=== PATIENT | male | born 1945 | race Caucasian/White ===

== ENCOUNTER 2017-05-22 18:43 | Emergency (ER) | payer MEDICARE, OTHER ==
[~2017-05-22] VITALS: Ht 180.3 cm; Wt 83.9 kg
[~2017-05-22 18:43] MED LIST: ALLOPURINOL300 MG PO; CRESTOR20 MG PO; ELIQUIS5 MG PO; LISINOPRIL 10MG10 MG PO; METFORMIN 500M500 M1 PO; METOPROLOL25 MG PO; POTASSIUM GLUC550 M1 PO
[2017-05-22] MEDS ORDERED: ASPIRIN 81MG TA81 MG PO (19:38)
[2017-05-22] MEDS ORDERED: LETAIRIS10 MG PO (19:39)
[2017-05-22] MEDS ORDERED: SILDENAFIL CITR20 MG PO (19:42)
--- NOTE | 2017-05-22 20:07 | Urgent Treatment Center Report ---
See Addendum History of Present Issue Date/Time Seen by Provider 05/22/171944 Visit Reason Pt arrived:Wheelchair Presenting Problem:PT STATES NOSEBLEED THAT BEGAN AT NOON TODAY AND QUIT FOR ABOUT AN HOUR AND RESUMED AT 1500. DENIES HISTORY OF NOSEBLEEDS. Location if Accident: Onset of symptoms date/time:05/22/1703/02/1200 or onset unknown for: Have you (or family members/close friends) recently traveled outside the [place]? N If Yes, where/when: Have you had exposure to infectious disease within the past month? TB? Other? Specify: Here w/ daughter c/o nose bleed right nostril. Started around 12 noon today. Pt reports he bent forward and "it just started dripping". Denies known injury/ trauma. Packed nose w/ tissues. thinks it stopped for approx one hour around 3- 4pm but at 4pm, restarted. Steady since. Other than packing nare, hasn't tried anything else. Hx of pulmonary HTN. Hospitalized in March for what sides like FVO. Using unknown type of nasal spray "to clean out nose" prescribed at every 2-3 days "when I feel congested". Taking ASA daily. Denies anticoagulants. Uses humidified oxygen via nasal canula continously. Reports BP monitored at home. Typically around 110/60. Denies weakness, dizziness, or being lightheaded. Source patient, daughter Exam Limitations no limitations ALLERGIES Coded Allergies: niacin (05/22/17) Home Medications Reported Medications Metformin HCl (Metformin) 500 MG PO DAILY POTASSIUM (Potassium) 550 MG PO DAILY Rosuvastatin Calcium (Crestor) 20 MG PO DAILY Allopurinol 300 MG PO DAILY Metoprolol Tartrate (Metoprolol) 25 MG PO BID ASPIRIN (Aspirin) 81 MG PO DAILY Ambrisentan (Letairis) 10 MG PO DAILY Sildenafil Citrate (Sildenafil) (Unknown Dose) PO QID History Medical History General CAD? No Angina: No PR: No Hypertension? Yes Hyperlipidemia? Yes CHF? No DVT? No PE? No COPD? Yes Asthma? No Anemia? No GERD? No Gastric ulcers? No GI Bleed? No Hernia? No Thyroid Problems? No Hypothyroidism? No CVA? No Seizures? No Diabetes? Yes Insulin Dependent: No Insulin Pump: No Home FSBS? No Renal Insuffiency? No UTI? No Stones? Yes BPH? No GB Disease: No Nephritic Syndrome? No Asplenia? No Hepatitis? No Sickle Cell Disease? No Arthritis? No Migraines? No Cataracts? No Glaucoma? No MRSA? No HIV? No TB? No Anxiety? No Depression? No Cancer? Yes More? Yes Additional hx: PULMONARY HTN, HAS ONE LUNG Immunization HX DT/Tetanus Unknown Surgical Hx Previous Surgery?Y R LUNG REMOVAL CLOTTED ARTERY HEART STENT Social History Smoking Hx Smoker: Former Smoker Tobacco: No Packs/day 1 1/2 - 2 Packs Review of Systems All Other Systems Reviewed and Negative Constitutional see HPI ENT see HPI. denies: ear pain, ear discharge. Respiratory cough (baseline, prod, no blood), shortness of breath (baseline) Cardiovascular denies chest pain, denies palpitations Gastrointestinal denies nausea Skin denies lesions, denies lumps, denies rash Psychiatric/Neurological denies headache Physical Exam Vital Signs Vital Signs Date Time Temp Pulse Resp B/P Pulse O2 O2 Flow FiO2 Ox Delivery Rate 05/22 1932 98.3 91 18 101/48 92 General Appearance frail, on oxygen via nasal cannula in mouth, seated in wheelchair, tissue packing right nare Ear, Nose, Throat normal bassem EACs and TM, normal pharynx, small slow bleed right lateral side anterior/vestibule Neck non-tender, supple Respiratory Status No: respiratory distress, productive cough, non productive cough. Cardiovascular regular rate/rhythm Neurologic alert, oriented x 3 Mental status normal mood/affect Skin normal color, warm/dry Lymphatic no adenopathy Medical Decision Making LABS/Meds/Orders Pt receiving controlled substance in ED? No Results/Orders Laboratory Tests 05/22/17 2015: PT 12.8 H, INR 1.18 H, WBC 4.9, RBC 2.77 L, Hgb 8.1 L, Hct 26.8 L, MCV 96.7 , RDW 18.2 H, Plt Count 93 L, MPV 12.1 H, Gran % 75.3, Gran # 3.7, Lymphocytes % 14.5, Monocytes % 8.9, Eosinophils % 0.9, Basophils % 0.2, Lymphocytes # 0.7, Monocytes # 0.4, Eosinophils # 0.0, Basophils # 0.0, PUBS MCHC 30.3 L, MCH 29.3 Current Medication Orders Sig/Nazia Start time Last Medication Dose Route Stop Time Status Admin Phenylephrine HCl 1 ML ONCE ONE 05/22 2045 DC 05/22 NA 05/22 Phenylephrine HCl 1 ML ONCE ONE 05/22 2030 DC 05/22 NA 05/22 Phenylephrine HCl 0 .STK-MED ONE 05/22 2015 DC .ROUTE Orders Procedure Date/time Status PROTHROMBIN TIME 05/22 2014 Complete CBC WITH AUTO DIFF 05/22 2006 Complete Consult MD Physician Consult Consult/PCP Dr. Walker, ER MD Time Called 2100 Reason Pt. Condition Comments Discussed current HPI, PMHx, current labs and treatment thus far. Does not recommend admission as H/H not low enough for transfusion. Recommends either nasal packing or nasal cocaine and follow up with primary care tomorrow. pt and daughter prefer packing agree to call PCP first thing in morning Progress [facility] Progress Notes 1 Date 05/22/17 Time 2037 Comment right nare dripping again. nasal vasoconstrictor administered around 2024. pt immediately held pressure from then until 2031. [facility] Progress Notes 2 Date 05/22/17 Time 2050 Comment Second dose of vasoconstrictor administered at 2040. Pressure held x 10 minutes. immediate slow bleed when pressure released. [facility] Progress Notes 3 Date 05/22/17 Time 2140 Comment No sign of nasal bleeding. Rhino rocket expanded. Pt feels ready to be discharged. Agrees to call PCP first thing in morning and if unable to see pt, aware to call [facility] and if ENT unable to see him, will need to return to [facility]. Procedures General/Other Procedure [facility] Procedure Note Date 05/22/17 Time 2124 - Rhino rocket inserted without difficulty. Pt tolerated well. No sign of continued bleeding. Departure Departure Time of Disposition 2141 Disposition DC Home or Self Care(routine) Clinical Impression Primary Impression: Anterior epistaxis Condition STABLE Referrals BRI BRANDON (Family) Call first thing in morning. If unable to see you tomorrow, call [phone] ( [facility]) and I will try to get you into ENT. If that is not possible, you will need to return here to [place] or ER depending on symptoms at that time. Patient Instructions DI for Nosebleed Additional Instructions Leave packing in place until tomorrow. Call PCP first thing in morning. If bleeding starts to occur around packing, return to ER. * FU with PCP [facility]IO due to abnormal labs Discharge Counseling Counseled pt/family regarding diagnosis, test results, medications/RX, home care, follow up needs at [phone]
--- NOTE | 2017-05-22 20:07 | Urgent Treatment Center Report ---
See Addendum History of Present Issue Date/Time Seen by Provider 05/22/171944 Visit Reason Pt arrived:Wheelchair Presenting Problem:PT STATES NOSEBLEED THAT BEGAN AT NOON TODAY AND QUIT FOR ABOUT AN HOUR AND RESUMED AT 1500. DENIES HISTORY OF NOSEBLEEDS. Location if Accident: Onset of symptoms date/time:05/22/1703/02/1200 or onset unknown for: Have you (or family members/close friends) recently traveled outside the [place]? N If Yes, where/when: Have you had exposure to infectious disease within the past month? TB? Other? Specify: Here w/ daughter c/o nose bleed right nostril. Started around 12 noon today. Pt reports he bent forward and "it just started dripping". Denies known injury/ trauma. Packed nose w/ tissues. thinks it stopped for approx one hour around 3- 4pm but at 4pm, restarted. Steady since. Other than packing nare, hasn't tried anything else. Hx of pulmonary HTN. Hospitalized in March for what sides like FVO. Using unknown type of nasal spray "to clean out nose" prescribed at every 2-3 days "when I feel congested". Taking ASA daily. Denies anticoagulants. Uses humidified oxygen via nasal canula continously. Reports BP monitored at home. Typically around 110/60. Denies weakness, dizziness, or being lightheaded. Source patient, daughter Exam Limitations no limitations ALLERGIES Coded Allergies: niacin (05/22/17) Home Medications Reported Medications Metformin HCl (Metformin) 500 MG PO DAILY POTASSIUM (Potassium) 550 MG PO DAILY Rosuvastatin Calcium (Crestor) 20 MG PO DAILY Allopurinol 300 MG PO DAILY Metoprolol Tartrate (Metoprolol) 25 MG PO BID ASPIRIN (Aspirin) 81 MG PO DAILY Ambrisentan (Letairis) 10 MG PO DAILY Sildenafil Citrate (Sildenafil) (Unknown Dose) PO QID History Medical History General CAD? No Angina: No CA: No Hypertension? Yes Hyperlipidemia? Yes CHF? No DVT? No PE? No COPD? Yes Asthma? No Anemia? No GERD? No Gastric ulcers? No GI Bleed? No Hernia? No Thyroid Problems? No Hypothyroidism? No CVA? No Seizures? No Diabetes? Yes Insulin Dependent: No Insulin Pump: No Home FSBS? No Renal Insuffiency? No UTI? No Stones? Yes BPH? No GB Disease: No Nephritic Syndrome? No Asplenia? No Hepatitis? No Sickle Cell Disease? No Arthritis? No Migraines? No Cataracts? No Glaucoma? No MRSA? No HIV? No TB? No Anxiety? No Depression? No Cancer? Yes More? Yes Additional hx: PULMONARY HTN, HAS ONE LUNG Immunization HX DT/Tetanus Unknown Surgical Hx Previous Surgery?Y R LUNG REMOVAL CLOTTED ARTERY HEART STENT Social History Smoking Hx Smoker: Former Smoker Tobacco: No Packs/day 1 1/2 - 2 Packs Review of Systems All Other Systems Reviewed and Negative Constitutional see HPI ENT see HPI. denies: ear pain, ear discharge. Respiratory cough (baseline, prod, no blood), shortness of breath (baseline) Cardiovascular denies chest pain, denies palpitations Gastrointestinal denies nausea Skin denies lesions, denies lumps, denies rash Psychiatric/Neurological denies headache Physical Exam Vital Signs Vital Signs Date Time Temp Pulse Resp B/P Pulse O2 O2 Flow FiO2 Ox Delivery Rate 05/22 1932 98.3 91 18 101/48 92 General Appearance frail, on oxygen via nasal cannula in mouth, seated in wheelchair, tissue packing right nare Ear, Nose, Throat normal bassem EACs and TM, normal pharynx, small slow bleed right lateral side anterior/vestibule Neck non-tender, supple Respiratory Status No: respiratory distress, productive cough, non productive cough. Cardiovascular regular rate/rhythm Neurologic alert, oriented x 3 Mental status normal mood/affect Skin normal color, warm/dry Lymphatic no adenopathy Medical Decision Making LABS/Meds/Orders Pt receiving controlled substance in ED? No Results/Orders Laboratory Tests 05/22/17 2015: PT 12.8 H, INR 1.18 H, WBC 4.9, RBC 2.77 L, Hgb 8.1 L, Hct 26.8 L, MCV 96.7 , RDW 18.2 H, Plt Count 93 L, MPV 12.1 H, Gran % 75.3, Gran # 3.7, Lymphocytes % 14.5, Monocytes % 8.9, Eosinophils % 0.9, Basophils % 0.2, Lymphocytes # 0.7, Monocytes # 0.4, Eosinophils # 0.0, Basophils # 0.0, PUBS MCHC 30.3 L, MCH 29.3 Current Medication Orders Sig/Nazia Start time Last Medication Dose Route Stop Time Status Admin Phenylephrine HCl 1 ML ONCE ONE 05/22 2045 DC 05/22 NA 05/22 Phenylephrine HCl 1 ML ONCE ONE 05/22 2030 DC 05/22 NA 05/22 Phenylephrine HCl 0 .STK-MED ONE 05/22 2015 DC .ROUTE Orders Procedure Date/time Status PROTHROMBIN TIME 05/22 2014 Complete CBC WITH AUTO DIFF 05/22 2006 Complete Consult MD Physician Consult Consult/PCP Dr. Walker, ER MD Time Called 2100 Reason Pt. Condition Comments Discussed current HPI, PMHx, current labs and treatment thus far. Does not recommend admission as H/H not low enough for transfusion. Recommends either nasal packing or nasal cocaine and follow up with primary care tomorrow. pt and daughter prefer packing agree to call PCP first thing in morning Progress [facility] Progress Notes 1 Date 05/22/17 Time 2037 Comment right nare dripping again. nasal vasoconstrictor administered around 2024. pt immediately held pressure from then until 2031. [facility] Progress Notes 2 Date 05/22/17 Time 2050 Comment Second dose of vasoconstrictor administered at 2040. Pressure held x 10 minutes. immediate slow bleed when pressure released. [facility] Progress Notes 3 Date 05/22/17 Time 2140 Comment No sign of nasal bleeding. Rhino rocket expanded. Pt feels ready to be discharged. Agrees to call PCP first thing in morning and if unable to see pt, aware to call [facility] and if ENT unable to see him, will need to return to [facility]. Procedures General/Other Procedure [facility] Procedure Note Date 05/22/17 Time 2124 - Rhino rocket inserted without difficulty. Pt tolerated well. No sign of continued bleeding. Departure Departure Time of Disposition 2141 Disposition DC Home or Self Care(routine) Clinical Impression Primary Impression: Anterior epistaxis Condition STABLE Referrals BRI BRANDON (Family) Call first thing in morning. If unable to see you tomorrow, call [phone] ( [facility]) and I will try to get you into ENT. If that is not possible, you will need to return here to [place] or ER depending on symptoms at that time. Patient Instructions DI for Nosebleed Additional Instructions Leave packing in place until tomorrow. Call PCP first thing in morning. If bleeding starts to occur around packing, return to ER. * FU with PCP [facility]IO due to abnormal labs Discharge Counseling Counseled pt/family regarding diagnosis, test results, medications/RX, home care, follow up needs at [phone]
[2017-05-22 20:23] LABS: HEMOGLOBIN 8.1 g/dL (14.1-18.0); LYMPH # 0.7 K/mm3 (0.7-4.5); LYMPH % 14.5 % (10-50)
[2017-05-22 21:46] VITALS: BP 101/48
[2017-05-23] MEDS ORDERED: KEFLEX 500MG.500 MG PO (14:02)
== END 2017-05-22 21:51 | disposition home or self-care (01) ==
LOC: UTC 18:43
PROVIDERS: Nurse Practitioner Family
DX: R04.0 Epistaxis (principal); I27.2 Other secondary pulmonary hypertension; Z79.899 Other long term (current) drug therapy; J44.9 Chronic obstructive pulmonary disease, unspecified; E78.5 Hyperlipidemia, unspecified; Z87.891 Personal history of nicotine dependence

== ENCOUNTER 2017-05-23 12:02 | Emergency (ER) | payer MEDICARE, OTHER ==
[~2017-05-23] VITALS: Ht 180.3 cm; Wt 83.9 kg
[~2017-05-23 12:02] MED LIST changes: +ASPIRIN 81MG TA81 MG PO; +LETAIRIS10 MG PO; +SILDENAFIL CITR20 MG PO
[2017-05-23 12:38] LABS: HEMOGLOBIN 8.9 g/dL (14.1-18.0); LYMPH # 0.9 K/mm3 (0.7-4.5); LYMPH % 14.2 % (10-50)
[2017-05-23 12:53] LABS: STOOL OCCULT BLOOD TRACE (NEG)
[2017-05-23] MEDS ORDERED: KEFLEX 500MG.500 MG PO (14:02)
--- NOTE | 2017-05-23 14:05 | Emergency Room Report ---
History of Present Illness Time Seen by 1212 Presenting Problem in Triage Pt arrived:Wheelchair Presenting Problem:PT REPORTS WAS SENT TO ER BY DR. LANE R/T ANEMIA ON BLOOD WORK THAT WAS DRAWN LASTNIGHT IN [facility]. PT STATES WAS SEEN IN [facility] LASTNIGHT R/T NOSE BLEED Onset of symptoms date/time:05/23/17/ or onset unknown for:MEDICAL HX UNKNOWN Treatment Prior to Arrival: BELT SANDER STONE Provided by: Sepsis Risk Assessment: Temp: 98.0 B/P: 129/72 MAP: 72 Pulse: 101 Resp: 20 Recent fever? N Clinical Suspician of Infection? N Mental Status: 1 - Regular (Normal Baseline) Sepsis Risk:Possible Sepsis Risk Have you (or family members/close friends) recently traveled outside the [place]? N If Yes, where/when: Have you had exposure to infectious disease within the past month? N TB? Other? Specify: Source patient, RN notes reviewed, family, RN/MD Exam Limitations no limitations Comment This is a 71-year-old male patient sent to the emergency room by Dr. Lane's office, where he is being seen for epistaxis, s/p nasal packing in the [facility] last night. Dr. Lane's office called with concerns of patient's hemoglobin being 8.1 yesterday and had a blood pressure of 80/40. ALLERGIES Coded Allergies: niacin (05/22/17) Home Medications Reported Medications POTASSIUM (Potassium) 40 MG PO DAILY Metformin HCl (Metformin) 500 MG PO DAILY Rosuvastatin Calcium (Crestor) 20 MG PO DAILY Allopurinol 300 MG PO DAILY Metoprolol Tartrate (Metoprolol) 25 MG PO BID ASPIRIN (Aspirin) 81 MG PO DAILY Ambrisentan (Letairis) 10 MG PO DAILY Sildenafil Citrate (Sildenafil) (Unknown Dose) PO QID History Medical History General CAD? No Angina: No CO: No Hypertension? Yes Hyperlipidemia? Yes CHF? No DVT? No PE? No COPD? Yes Asthma? No Anemia? No GERD? No Gastric ulcers? No GI Bleed? No Hernia? No Thyroid Problems? No Hypothyroidism? No CVA? No Seizures? No Diabetes? Yes Insulin Dependent: No Insulin Pump: No Home FSBS? No Renal Insuffiency? No End Stage Renal Disease? No UTI? No Stones? Yes BPH? No GB Disease: No Nephritic Syndrome? No Asplenia? No Hepatitis? No Sickle Cell Disease? No Arthritis? No Migraines? No Cataracts? No Glaucoma? No MRSA? No HIV? No TB? No Anxiety? No Depression? No Cancer? Yes More? Yes Additional hx: PULMONARY HTN, HAS ONE LUNG Immunization Hx DT/Tetanus Unknown Surgical Hx Previous Surgery?Y R LUNG REMOVAL CLOTTED ARTERY HEART STENT THORACENTESIS-MULTIPLE Social History Smoking Hx Smoker: Current Every Day Smoker Tobacco: Yes Type Cigarettes Packs/day 1 1/2 - 2 Packs Alcohol Alcohol: No Review of Systems All Other Systems Reviewed and Negative Comment Concerns related to patient's being anemic and hypotensive Physical Exam Vital Signs Vital Signs Date Time Temp Pulse Resp B/P Pulse O2 O2 Flow FiO2 Ox Delivery Rate 05/23 1413 98.0 101 20 129/72 89 6 05/23 1354 101 20 129/72 81 6 05/23 1259 99 20 152/62 78 6 05/23 1209 98.1 100 22 99/59 88 6 General Appearance normal appearance, WD/WN, no apparent distress Respiratory Status Yes: trachea midline, chest symmetrical, non tender chest. No: respiratory distress. Lung Sounds bilateral: normal breath sounds, lungs clear. Cardiovascular normal exam, regular rate/rhythm, no peripheral edema, no gallop, no JVD, no murmur, no rub, normal peripheral pulses Gastrointestinal normal bowel sounds, normal exam, non tender, soft, no organomegaly Extremities non-tender, normal range of motion, normal inspection Neurologic alert, cruller maker machine II-XII nml as tested, normal exam, oriented x 3 Mental status normal mood/affect Skin intact, normal color, warm/dry Medical Decision Making LABS/Meds/Orders Pt receiving controlled substance in ED? No Comment The patient had a RIGHT sided pneumonectomy secondary to lung cancer. Results of lab work obtained yesterday as well as today reviewed, but the patient has never been to this facility prior to this, so there is no previous labwork available for comparison. His guaiac stool his trace positive. His hemoglobin today appears to be higher than yesterday, and, after IV fluids the patient's blood pressure is 134 systolic. We have rescheduled patient's follow-up visit with Dr. Lane for Saturday, for nasal packing removal, and patient was again strongly encouraged to schedule follow-up appointment with his PCP in order to obtain additional outpatient workup for his anemia and lower gastrointestinal bleed. Patient also advised to check his blood pressure, keep her return long with those readings, and that needs to be taken to his next scheduled visit with his PCP. Results/Orders Laboratory Tests 05/23/17 1250: Stool Occult Blood TRACE 05/23/17 121: Creatine Kinase 42, CK-MB (CK-2) Rel Index 1.9, CK and CKMB Interp 0.8, Troponin I < 0.02 05/23/17 121: Amylase 63, Lipase 271 05/23/17 121: Sodium 142, Potassium 3.5, Chloride 95 L, Carbon Dioxide 41 *H, BUN 35 H, Creatinine 1.3, Estimated Creat Clear 62, Estimated GFR (MDRD) 54, Glucose 115 H, Calcium 9.3, Total Bilirubin 0.8, AST 15, ALT 13, Alkaline Phosphatase 113, Total Protein 9.2 H, Albumin 3.8, Globulin 5.4 H, Albumin/Globulin Ratio 0.7 L, PT 12.6 H, INR 1.16 H, APTT 27.7, WBC 6.3, RBC 3.12 L, Hgb 8.9 L, Hct 29.0 L, MCV 92.8, RDW 20.6 H, Plt Count 107 L, Gran % 80.4 H, Gran # 5.1, Lymphocytes % 14.2, Monocytes % 5.4, Lymphocytes # 0.9, Monocytes # 0.3, PUBS MCHC 30.7 L, MCH 28.5 Current Medication Orders Sig/Nazia Start time Last Medication Dose Route Stop Time Status Admin Sodium Chloride 1,000 ML .STK-MED ONE 05/23 1233 DC IV Sodium Chloride 1,000 ML .Q1H1M 05/23 1215 DC 05/23 IV 05/23 1315 1250 Sodium Chloride 10 ML PRN PRN 05/23 1215 DCD IV 05/24 1214 Orders Procedure Date/time Status STOOL OCCULT BLOOD 05/23 1249 Active LIPASE 05/23 1221 Complete AMYLASE 05/23 1221 Complete PARTIAL THROMBOPLASTIN TIME 05/23 1214 Complete PROTHROMBIN TIME 05/23 121 Complete ELECTROCARDIOGRAM REQUEST 05/23 1213 Active CBC WITH AUTO DIFF 05/23 1213 Complete CARDIAC ENZYMES 05/23 1213 Complete CHEM 12 PROFILE 05/23 1213 Complete 12 LEAD EKG-[facility] CAMPUSTOMASA (INITIAL) 09/07 1210 Active CM/EKG CM/sweat band separator Rhythm Normal Sinus Rhythm Rate 68 Ectopy No Comments No acute ischemic changes EKG rate, NSR, rhythm, no evid. of ischemic chgs, no ectopy, normal QRS, normal DE, no EKG for comparison, non-spec. ST/Twave chgs, ST elevation, ST depression, LBBB, RBBB, ectopy, abnormal Q waves XRAY/CT/US XRAY/CT/US XRAY chest XR interpretation by discussed w/radiologist Xray Results abnormal Comment RIGHT lung field opacified, chronic, see radiologist's report Departure Departure Time of Disposition 1401 Disposition DC Home or Self Care(routine) Clinical Impression Primary Impression: Hypotension Qualifiers: Hypotension type: unspecified hypotension type Qualified Code: I95.9 - Hypotension, unspecified Secondary Impressions: Anemia Qualifiers: Anemia type: unspecified type Qualified Code: D64.9 - Anemia, unspecified Condition STABLE Referrals Geoff Lane MD on Saturday05/27/17 at 14:30 Patient Instructions DI for Iron Deficiency Anemia-Adult, DI for Nosebleed, Gastrointestinal Bleeding Additional Instructions Please start the antibiotic prescribed immediately. Follow up with Dr Lane on Sunday 05/27 at 14:30 for nasal packing removal. Please follow-up with your family physician regarding additional outpatient workup regarding your anemia and gastrointestinal bleed. Discharge Counseling Counseled pt/family regarding diagnosis, test results, medications/RX, home care, follow up needs Comment Please start the antibiotic prescribed immediately. Follow up with Dr Lane on Sunday 05/27 at 14:30 for nasal packing removal. Please follow-up with your family physician regarding additional outpatient workup regarding your anemia and gastrointestinal bleed. Prescriptions Current Visit Scripts CEPHALEXIN (Keflex 500MG Capsule) 500 MG PO QID #40 [facility] Critical Care Critical Care No at [id number]
--- NOTE | 2017-05-23 14:05 | RADIOLOGY REPORT PS360 ---
CHEST-PORTABLE HISTORY: dyspnea ORDERING PHYSICIAN: Ziggy Woodruff MD PATIENT AGE: 71 years COMPARISON: None available FINDINGS: There is complete opacification of the right hemithorax with volume loss and surgical clips consistent with prior right pneumonectomy. Mediastinum is shifted toward the right. Postsurgical changes of the right upper hemithorax. Correlation with old films needed. None are available at this institution. The left lung is clear. IMPRESSION: Prior right pneumonectomy with postsurgical changes and opacification of the right chest
--- NOTE | 2017-05-23 14:05 | Emergency Room Report ---
History of Present Illness Time Seen by [id number] Presenting Problem in Triage Pt arrived:Wheelchair Presenting Problem:PT REPORTS WAS SENT TO ER BY DR. LANE R/T ANEMIA ON BLOOD WORK THAT WAS DRAWN LASTNIGHT IN [facility]. PT STATES WAS SEEN IN [facility] LASTNIGHT R/T NOSE BLEED Onset of symptoms date/time:05/23/17/ or onset unknown for:MEDICAL HX UNKNOWN Treatment Prior to Arrival: FEATHERER Provided by: Sepsis Risk Assessment: Temp: 98.0 B/P: 129/72 MAP: 72 Pulse: 101 Resp: 20 Recent fever? N Clinical Suspician of Infection? N Mental Status: 1 - Regular (Normal Baseline) Sepsis Risk:Possible Sepsis Risk Have you (or family members/close friends) recently traveled outside the [place]? N If Yes, where/when: Have you had exposure to infectious disease within the past month? N TB? Other? Specify: Source patient, RN notes reviewed, family, RN/MD Exam Limitations no limitations Comment This is a 71-year-old male patient sent to the emergency room by Dr. Lane's office, where he is being seen for epistaxis, s/p nasal packing in the [facility] last night. Dr. Lane's office called with concerns of patient's hemoglobin being 8.1 yesterday and had a blood pressure of 80/40. ALLERGIES Coded Allergies: niacin (05/22/17) Home Medications Reported Medications POTASSIUM (Potassium) 40 MG PO DAILY Metformin HCl (Metformin) 500 MG PO DAILY Rosuvastatin Calcium (Crestor) 20 MG PO DAILY Allopurinol 300 MG PO DAILY Metoprolol Tartrate (Metoprolol) 25 MG PO BID ASPIRIN (Aspirin) 81 MG PO DAILY Ambrisentan (Letairis) 10 MG PO DAILY Sildenafil Citrate (Sildenafil) (Unknown Dose) PO QID History Medical History General CAD? No Angina: No [place]: No Hypertension? Yes Hyperlipidemia? Yes CHF? No DVT? No PE? No COPD? Yes Asthma? No Anemia? No GERD? No Gastric ulcers? No GI Bleed? No Hernia? No Thyroid Problems? No Hypothyroidism? No CVA? No Seizures? No Diabetes? Yes Insulin Dependent: No Insulin Pump: No Home FSBS? No Renal Insuffiency? No End Stage Renal Disease? No UTI? No Stones? Yes BPH? No GB Disease: No Nephritic Syndrome? No Asplenia? No Hepatitis? No Sickle Cell Disease? No Arthritis? No Migraines? No Cataracts? No Glaucoma? No MRSA? No HIV? No TB? No Anxiety? No Depression? No Cancer? Yes More? Yes Additional hx: PULMONARY HTN, HAS ONE LUNG Immunization Hx DT/Tetanus Unknown Surgical Hx Previous Surgery?Y R LUNG REMOVAL CLOTTED ARTERY HEART STENT THORACENTESIS-MULTIPLE Social History Smoking Hx Smoker: Current Every Day Smoker Tobacco: Yes Type Cigarettes Packs/day 1 1/2 - 2 Packs Alcohol Alcohol: No Review of Systems All Other Systems Reviewed and Negative Comment Concerns related to patient's being anemic and hypotensive Physical Exam Vital Signs Vital Signs Date Time Temp Pulse Resp B/P Pulse O2 O2 Flow FiO2 Ox Delivery Rate 05/23 1413 98.0 101 20 129/72 89 6 05/23 1354 101 20 129/72 81 6 05/23 1259 99 20 152/62 78 6 05/23 1209 98.1 100 22 99/59 88 6 General Appearance normal appearance, WD/WN, no apparent distress Respiratory Status Yes: trachea midline, chest symmetrical, non tender chest. No: respiratory distress. Lung Sounds bilateral: normal breath sounds, lungs clear. Cardiovascular normal exam, regular rate/rhythm, no peripheral edema, no gallop, no JVD, no murmur, no rub, normal peripheral pulses Gastrointestinal normal bowel sounds, normal exam, non tender, soft, no organomegaly Extremities non-tender, normal range of motion, normal inspection Neurologic alert, flare worker II-XII nml as tested, normal exam, oriented x 3 Mental status normal mood/affect Skin intact, normal color, warm/dry Medical Decision Making LABS/Meds/Orders Pt receiving controlled substance in ED? No Comment The patient had a RIGHT sided pneumonectomy secondary to lung cancer. Results of lab work obtained yesterday as well as today reviewed, but the patient has never been to this facility prior to this, so there is no previous labwork available for comparison. His guaiac stool his trace positive. His hemoglobin today appears to be higher than yesterday, and, after IV fluids the patient's blood pressure is 134 systolic. We have rescheduled patient's follow-up visit with Dr. Lane for Saturday, for nasal packing removal, and patient was again strongly encouraged to schedule follow-up appointment with his PCP in order to obtain additional outpatient workup for his anemia and lower gastrointestinal bleed. Patient also advised to check his blood pressure, keep her return long with those readings, and that needs to be taken to his next scheduled visit with his PCP. Results/Orders Laboratory Tests 05/23/17 1250: Stool Occult Blood TRACE 05/23/17 121: Creatine Kinase 42, CK-MB (CK-2) Rel Index 1.9, CK and CKMB Interp 0.8, Troponin I < 0.02 05/23/17 121: Amylase 63, Lipase 271 05/23/17 121: Sodium 142, Potassium 3.5, Chloride 95 L, Carbon Dioxide 41 *H, BUN 35 H, Creatinine 1.3, Estimated Creat Clear 62, Estimated GFR (MDRD) 54, Glucose 115 H, Calcium 9.3, Total Bilirubin 0.8, AST 15, ALT 13, Alkaline Phosphatase 113, Total Protein 9.2 H, Albumin 3.8, Globulin 5.4 H, Albumin/Globulin Ratio 0.7 L, PT 12.6 H, INR 1.16 H, APTT 27.7, WBC 6.3, RBC 3.12 L, Hgb 8.9 L, Hct 29.0 L, MCV 92.8, RDW 20.6 H, Plt Count 107 L, Gran % 80.4 H, Gran # 5.1, Lymphocytes % 14.2, Monocytes % 5.4, Lymphocytes # 0.9, Monocytes # 0.3, PUBS MCHC 30.7 L, MCH 28.5 Current Medication Orders Sig/Nazia Start time Last Medication Dose Route Stop Time Status Admin Sodium Chloride 1,000 ML .STK-MED ONE 05/23 1233 DC IV Sodium Chloride 1,000 ML .Q1H1M 05/23 1215 DC 05/23 IV 05/23 1315 1250 Sodium Chloride 10 ML PRN PRN 05/23 1215 DCD IV 05/24 1214 Orders Procedure Date/time Status STOOL OCCULT BLOOD 05/23 1249 Active LIPASE 05/23 1221 Complete AMYLASE 05/23 1221 Complete PARTIAL THROMBOPLASTIN TIME 05/23 1214 Complete PROTHROMBIN TIME 05/23 121 Complete ELECTROCARDIOGRAM REQUEST 05/23 1213 Active CBC WITH AUTO DIFF 05/23 1213 Complete CARDIAC ENZYMES 05/23 1213 Complete CHEM 12 PROFILE 05/23 1213 Complete [facility] 09/07 1210 Active CM/EKG CM/cane packer Rhythm Normal Sinus Rhythm Rate 68 Ectopy No Comments No acute ischemic changes EKG rate, NSR, rhythm, no evid. of ischemic chgs, no ectopy, normal QRS, normal MS, no EKG for comparison, non-spec. ST/Twave chgs, ST elevation, ST depression, LBBB, RBBB, ectopy, abnormal Q waves XRAY/CT/US XRAY/CT/US XRAY chest XR interpretation by discussed w/radiologist Xray Results abnormal Comment RIGHT lung field opacified, chronic, see radiologist's report Departure Departure Time of Disposition 1401 Disposition DC Home or Self Care(routine) Clinical Impression Primary Impression: Hypotension Qualifiers: Hypotension type: unspecified hypotension type Qualified Code: I95.9 - Hypotension, unspecified Secondary Impressions: Anemia Qualifiers: Anemia type: unspecified type Qualified Code: D64.9 - Anemia, unspecified Condition STABLE Referrals Geoff Lane MD on Saturday05/27/17 at 14:30 Patient Instructions DI for Iron Deficiency Anemia-Adult, DI for Nosebleed, Gastrointestinal Bleeding Additional Instructions Please start the antibiotic prescribed immediately. Follow up with Dr Lane on Sunday 05/27 at 14:30 for nasal packing removal. Please follow-up with your family physician regarding additional outpatient workup regarding your anemia and gastrointestinal bleed. Discharge Counseling Counseled pt/family regarding diagnosis, test results, medications/RX, home care, follow up needs Comment Please start the antibiotic prescribed immediately. Follow up with Dr Lane on Sunday 05/27 at 14:30 for nasal packing removal. Please follow-up with your family physician regarding additional outpatient workup regarding your anemia and gastrointestinal bleed. Prescriptions Current Visit Scripts CEPHALEXIN (Keflex 500MG Capsule) 500 MG PO QID #40 [facility] ED Critical Care Critical Care No at [id number]
[2017-05-23 14:13] VITALS: BP 129/72
== END 2017-05-23 14:14 | disposition home or self-care (01) ==
LOC: ER 12:02
PROVIDERS: Emergency Medicine
DX: I95.9 Hypotension, unspecified (principal); D64.9 Anemia, unspecified; I10 Essential (primary) hypertension; J44.9 Chronic obstructive pulmonary disease, unspecified; E11.9 Type 2 diabetes mellitus without complications; I27.2 Other secondary pulmonary hypertension; E78.5 Hyperlipidemia, unspecified; F17.210 Nicotine dependence, cigarettes, uncomplicated; Z88.8 Allergy status to other drugs, medicaments and biological substances; Z79.84 Long term (current) use of oral hypoglycemic drugs; Z79.82 Long term (current) use of aspirin; Z79.899 Other long term (current) drug therapy; Z87.442 Personal history of urinary calculi; Z90.2 Acquired absence of lung [part of]; Z95.5 Presence of coronary angioplasty implant and graft; Z85.118 Personal history of other malignant neoplasm of bronchus and lung
CPT/HCPCS: G0328